=== PATIENT | male | born 1945 | race Caucasian/White ===

== ENCOUNTER 2022-10-19 05:59 | Day surgery (SDC) | payer OTHER ==
[2022-10-17 09:18] LABS: BASOPHILS % (AUTO) 0.8 % (0.0-5.0); EOSINOPHILS % (AUTO) 3.5 % (0.0-8.0); HEMATOCRIT 41.2 % (42-54); LYMPHOCYTES % (AUTO) 15.1 % (21.0-51.0); MEAN CORPUSCULAR HEMOGLOBIN 30.9 pg (27.0-33.0); MEAN CORPUSCULAR VOLUME 93.6 fL (79-99); MONOCYTES % (AUTO) 8.2 % (3.0-13.0); PLATELET COUNT (AUTO) 162 K/uL (130-400); WHITE BLOOD COUNT (AUTO) 7.7 K/uL (4.8-10.8)
[2022-10-17 09:24] VITALS: BP 170/88
[2022-10-17 09:29] LABS: CREATININE 1.1 mg/dL (0.5-1.5); POTASSIUM 4.3 mmol/L (3.5-5.1)
[2022-10-17 09:31] LABS: INR 1.01 (0.85-1.15)
[2022-10-17 09:33] LABS: PARTIAL THROMBOPLASTIN TIME 28.2 SEC (26.3-35.5)
[2022-10-17 10:02] LABS: APPEARANCE,URINE CLEAR (CLEAR); BILIRUBIN,URINE NEGATIVE (NEGATIVE); COLOR,URINE YELLOW (YELLOW); GLUCOSE, URINE (UA) NEGATIVE (NEGATIVE); KETONES,URINE NEGATIVE (NEGATIVE); LEUKOCYTE ESTERASE ,URINE NEGATIVE Leu/uL (NEGATIVE); NITRATE,URINE NEGATIVE (NEGATIVE); OCCULT BLOOD,URINE NEGATIVE (NEGATIVE); PH,URINE 6.5 (5.0-8.0); PROTEIN,URINE 20 mg/dL (NEGATIVE); UROBILINOGEN,URINE 0.2 mg/dL (0.2-1.0)
[2022-10-17 10:26] LABS: MUCUS,URINE RARE LPF (None Seen); TRANSITIONAL EPI CELLS,URINE RARE /HPF (None Seen)
[2022-10-17 11:09] LABS: B-TYPE NATRIURETIC PEPTIDE 572 pg/mL (0-100)
[2022-10-19] VITALS (13 sets, daily range): BP systolic 161–179; BP diastolic 84–93
[~2022-10-19] VITALS: Ht 185.4 cm; Wt 110.6 kg
[~2022-10-19 05:59] MED LIST: 0.9%NACL 1000ML 1,000 ML IV SCH; ACET-2247 PO; AEC81 PO; ESCI-8 PO; FOLIC ACID PO; LEVE750T10 PO; MELA5CAP PO; METH2.5T6 PO; MULT-1367 PO; OMEP20CA12 PO; SIMV-43 PO; TAMS-1 PO
[2022-10-19] MEDS ORDERED: 0.9%NACL 1000ML 1,000 ML IV ONE (06:28)
[2022-10-19] MEDS ORDERED: VERAPAMIL HCL 2.5 MG/ML VIAL ONE (07:20)
[2022-10-19] MEDS ORDERED: HEPARIN 10,000 UNIT/10ML (1,000 UNIT/ML) VIAL ONE (07:20)
[2022-10-19] MEDS ORDERED: LIDOCAINE HCL 400MG/20ML VIAL ONE (07:21)
[2022-10-19] MEDS ORDERED: FENTANYL CITRATE PF 50 MCG/1 ML 2ML VIAL ONE (07:21)
[2022-10-19] MEDS ORDERED: IOHEXOL 350 MG/ML 100ML INFUS..BTL IV ONE (07:21)
[2022-10-19] MEDS ORDERED: NITROGLYCERIN 50MG VIAL ONE (07:21)
[2022-10-19] MEDS ORDERED: MIDAZOLAM HCL 1 MG/ML 2ML VIAL ONE (07:21)
[2022-10-19] MEDS ORDERED: DiphenhydrAMINE HCL 50 MG/ML VIAL ONE (07:45)
[2022-10-19] MEDS ORDERED: GLUCAGON 1MG KIT 1 MG ML IM PRN (08:30)
[2022-10-19] MEDS ORDERED: DEXTROSE 50%-WATER 50 ML DISP.SYRIN IV PRN (08:30)
== END 2022-10-19 11:30 | disposition home or self-care (01) ==
LOC: DAH 05:59
PROVIDERS: ATTEND Student in an Organized Health Care Education/Training Program
DX: R55 Syncope and collapse (principal); I25.10 Atherosclerotic heart disease of native coronary artery without angina pectoris; I11.0 Hypertensive heart disease with heart failure; I50.20 Unspecified systolic (congestive) heart failure; E78.5 Hyperlipidemia, unspecified; K21.9 Gastro-esophageal reflux disease without esophagitis; G40.909 Epilepsy, unspecified, not intractable, without status epilepticus; F17.210 Nicotine dependence, cigarettes, uncomplicated; Z79.82 Long term (current) use of aspirin; Z79.899 Other long term (current) drug therapy; Z95.0 Presence of cardiac pacemaker; Z98.890 Other specified postprocedural states; Z72.89 Other problems related to lifestyle
CPT/HCPCS: 80048; 83880; 85025; 85610; 85730; 81001; 36415; 71045; 93005; 93458; A4223 ×3; C1769; C1894; Q9965 ×2; J1200; J3010; J3490 ×3; J7030; J1644 ×2; J2250; Q9967; A4215; A4222; A4221; A4663; A4216; A6206; A4606; 99156; 99157